=== PATIENT | male | born 1990 | race Caucasian/White ===

== ENCOUNTER 2016-05-19 18:08 | Emergency (ER) | payer OTHER | END 2016-05-19 19:46 | disposition home or self-care (01) | LOC: FER 18:08 | DX: S52.611A Displaced fracture of right ulna styloid process, initial encounter for closed fracture (principal); V89.2XXA Person injured in unspecified motor-vehicle accident, traffic, initial encounter; Y92.410 Unspecified street and highway as the place of occurrence of the external cause | CPT/HCPCS: 73110; 99283 ==